=== PATIENT | male | born 1990 | race Caucasian/White ===

== ENCOUNTER 2023-02-03 19:32 | Inpatient (IN) | payer SELFPAY ==
[~2023-02-03] VITALS: Ht 180.3 cm; Wt 97.2 kg
[2023-02-03 20:05] VITALS: BP 128/78; PULSE 109; TEMP 98.5
[2023-02-03] MEDS ORDERED: FLONASE NASAL S16 GM NS (20:06)
[2023-02-03] MEDS ORDERED: FLINTSTONES PLU1 CT1 PO (20:07)
[2023-02-03 23:32] VITALS: BP 118/63; PULSE 94; TEMP 97.4
--- NOTE | 2023-02-03 23:44 | NUR ---
PATIENT UP TO ROOM 349, ALERT AND ORIENTED. FAMILY AT BEDSIDE. BLE 2+ EDEMA NOTED. MED RX COMPLETED, ADMISSION ASSESSMENT COMPLETED. DENIES PAIN CONTROL NEEDS. NOTIFIED PAULIE DUFFY OF PATIENTS ARRIVAL. HS MEDS PER ORDER. LOW SODIUM DIET AND FLUID RESTRICITION IN PLACE. URINAL PROVIDED TO MONITOR URINE OUTPUT. IV TO L FA STARTED.
[2023-02-04 03:55] VITALS: BP 110/64; PULSE 74; TEMP 97.6
[2023-02-04 06:55] LABS: INR 1.4 (0.8-3.0); PROTHROMBIN TIME 15.8 SECONDS (9.7-12.8)
[2023-02-04 07:00] LABS: BASO # 0.1 K/mm3 (0.0-0.2); EOS # 0.6 K/mm3 (0.0-0.7); EOS % 4.8 % (0.0-4.0); GRAN # 7.7 K/mm3 (1.4-6.5); GRAN % 66.9 % (42.2-75.2); HEMOGLOBIN 12.5 g/dl (13.5-18.0); LYMPH # 2.3 K/mm3 (1.2-3.4); LYMPH % 19.9 % (20.0-51.0); MEAN CELL VOLUME 101 fl (80.0-100.0); MEAN CORPUSCULAR HEMOGLOBIN 34 pg (27-31); MEAN CORPUSCULAR HGB CONC 34 g/dl (33.0-37.0); MEAN PLATELET VOLUME 12.3 fl (7.4-10.4); MONO # 0.8 K/mm3 (0.1-0.6); PLATELET COUNT 181 K/mm3 (130-400); RED BLOOD COUNT 3.67 M/mm3 (4.20-5.60); REDCELL DISTRIBUTION WIDTH-CV 14.6 % (11.5-14.5)
[2023-02-04 07:09] VITALS: BP 117/67; PULSE 99; TEMP 98.4
[2023-02-04 07:18] LABS: ALBUMIN 2.4 gm/dL (3.5-5.0); BILIRUBIN,TOTAL 5.1 mg/dL (0.2-1.2); CALCIUM 8.2 mg/dL (8.4-10.2); CREATININE, serum 0.72 mg/dL (0.72-1.25); MAGNESIUM 2.1 mg/dL (1.6-2.6); POTASSIUM 3.9 mmol/L (3.5-4.5); TOTAL PROTEIN 5.1 gm/dL (6.2-8.1)
--- NOTE | 2023-02-04 08:00 | NUR ---
Pt. sitting up in bed. Pt. is A&OX3, assessment complete. INT to lt. forearm patent. Pt. denies pain or other needs, call light within reach.
[2023-02-04 10:16] LABS: PERITONEAL -POLYMORPHONUCLEAR 16.3 % (0-25)
[2023-02-04 11:14] VITALS: BP 114/72; PULSE 98; TEMP 98.1
--- NOTE | 2023-02-04 11:49 | NUR ---
[facility] met with the patient and his father, Irvin, to discuss discharge plan. The patient lives alone in [place]. He reports independence with ADLs and does not have any DME. The patient states that he does not have a PCP, but if he needs to see anyone, he just goes to the [facility] and sees who is available. He obtains his medications from a pharmacy in [place]. The patient does not have a DPOA-HC. He states that he is not and does not have any children. His parents: Irvin and Kristine (ph#[phone]) are his legal next of kin. The patient plans to return home upon discharge. 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 [facility] offered local alcohol treatment resources. The patient declined, since he lives further away. He had no questions or concerns for R[facility] about his alcohol use or discharge. No additional needs at this time. *Discharge plan: home*
--- NOTE | 2023-02-04 13:47 | NUR ---
Initial visit; Patient thanked Syrup Mixer Assistant for looking in on him and states he is feeling good today and has had great care here. Syrup Mixer Assistant wished him well and offered God's blessings.
[2023-02-04 15:42] VITALS: BP 115/63; PULSE 94; TEMP 98.3
[2023-02-04 19:39] VITALS: BP 105/60; PULSE 100; TEMP 99.1
[2023-02-04 23:46] VITALS: BP 99/47; PULSE 99; TEMP 98.3
--- NOTE | 2023-02-05 00:10 | NUR ---
Patient admitted to unit due to fluid rentention, Shortness of breath, edema, and body aches due to liver cirrhosis. Patient's condition being managed with pain medication, and intravenous antibiotics. Patient has a incision to the right lower quadrant related to a paracentesis performed, site is covered with guaze, and skin and warm dry and intact. Patient is low risk for falls, patient was on a low sodium diet. Diet order changed to NPO due to procedure in the morning of 02/05/2023.
[2023-02-05 03:40] VITALS: BP 107/61; PULSE 81; TEMP 98.1
[2023-02-05 07:05] VITALS: BP 101/60; PULSE 84; TEMP 98
[2023-02-05 07:05] LABS: BASO # 0.1 K/mm3 (0.0-0.2); BASO % 0.9 % (0.0-2.0); EOS # 0.5 K/mm3 (0.0-0.7); EOS % 4.6 % (0.0-4.0); GRAN # 6.9 K/mm3 (1.4-6.5); GRAN % 69.7 % (42.2-75.2); HEMOGLOBIN 12.5 g/dl (13.5-18.0); LYMPH # 1.8 K/mm3 (1.2-3.4); LYMPH % 18.6 % (20.0-51.0); MEAN CELL VOLUME 101 fl (80.0-100.0); MEAN CORPUSCULAR HEMOGLOBIN 35 pg (27-31); MEAN CORPUSCULAR HGB CONC 34 g/dl (33.0-37.0); MEAN PLATELET VOLUME 12.3 fl (7.4-10.4); MONO # 0.6 K/mm3 (0.1-0.6); MONO % 5.6 % (1.7-9.3); PLATELET COUNT 177 K/mm3 (130-400); RED BLOOD COUNT 3.62 M/mm3 (4.20-5.60); REDCELL DISTRIBUTION WIDTH-CV 14.5 % (11.5-14.5)
[2023-02-05 07:06] LABS: HEMATOCRIT 36.7 % (42.0-52.0)
[2023-02-05 07:26] LABS: ALBUMIN 2.5 gm/dL (3.5-5.0); BILIRUBIN,TOTAL 4.3 mg/dL (0.2-1.2); CALCIUM 8.1 mg/dL (8.4-10.2); CREATININE, serum 0.73 mg/dL (0.72-1.25); POTASSIUM 3.7 mmol/L (3.5-4.5); TOTAL PROTEIN 4.6 gm/dL (6.2-8.1)
[2023-02-05 07:29] LABS: INR 1.3 (0.8-3.0); PROTHROMBIN TIME 15.1 SECONDS (9.7-12.8)
--- NOTE | 2023-02-05 07:45 | NUR ---
Pt. sitting up in bed. Pt. is A&OX3, assessment complete. INT to lt. forearm patent. Pt. denies pain or other needs, call light within reach.
[2023-02-05] MEDS ORDERED: ALDACTONE50 MG PO (08:14)
[2023-02-05] MEDS ORDERED: LASIX 20MG TABL20 MG PO (08:15)
[2023-02-05 11:35] VITALS: BP 106/68; PULSE 85; TEMP 98.5
[2023-02-05 16:01] VITALS: BP 93/58; PULSE 86
--- NOTE | 2023-02-05 17:37 | NUR ---
Pt. has discharge orders. INT discontinued from lt. forearm. Discharge paperwork reviewed and given to the pt. Pt. voices understanding. Pt. dressed and escorted out by FOUNDRY MOLDER.
[2023-02-06 13:36] LABS: ANA SCREEN with REFLEX Negative (Negative)
[2023-02-09 11:49] LABS: ANTISMOOTH MUSCLE ANTIBODY Negative (Negative)
[2023-02-11 19:02] LABS: CERULOPLASMIN 25 mg/dL (20-60)
== END 2023-02-05 17:43 | disposition home or self-care (01) | DRG 433 ==
LOC: SURG 19:32
PROVIDERS: Internal Medicine Gastroenterology; Student in an Organized Health Care Education/Training Program; ADMIT Internal Medicine
PROC: 0W9G3ZX Drainage of Peritoneal Cavity, Percutaneous Approach, Diagnostic (ICD-10-PCS; principal; 2023-02-04)
PROC: 0DB78ZX Excision of Stomach, Pylorus, Via Natural or Artificial Opening Endoscopic, Diagnostic (ICD-10-PCS; 2023-02-05)
DX: K70.31 Alcoholic cirrhosis of liver with ascites (principal); I85.10 Secondary esophageal varices without bleeding; K76.6 Portal hypertension; J90 Pleural effusion, not elsewhere classified; R59.0 Localized enlarged lymph nodes; D72.829 Elevated white blood cell count, unspecified; K31.89 Other diseases of stomach and duodenum; F10.10 Alcohol abuse, uncomplicated; F17.210 Nicotine dependence, cigarettes, uncomplicated; K76.89 Other specified diseases of liver; Z79.899 Other long term (current) drug therapy
CPT/HCPCS: A9575; J0696; J1650; J1940; J2704; P9047